=== PATIENT | female | born 1970 | race Two or more races ===

== ENCOUNTER 2024-08-30 12:08 | Emergency (ER) | payer OTHER ==
[~2024-08-30] VITALS: Ht 157.5 cm; Wt 78.2 kg
[2024-08-30 12:08] VITALS: BP 92/61; RESP 20; O2SAT 98
--- NOTE | 2024-08-30 13:18 | ED.PDOC ---
History of Present Illness HPI Comments 54F presents to the Er w/ no prior Hx associated to the c/c of a syncope. Pt reports that she was sent from labor/delivery due from having a syncopal episode. Pt states that she was with her foster child and was holding her hand when the pt felt hot and saw "everything go dark". Pt is now stating that she "f eels a lot better now". PMHx of Thyroid. SHx of Hysterectomy. Family Hx of Cancer. Denies chills, fever, N/V/D, SOB, CP or other associated symptom's, modifiers, or recent injuries or sick contact at this time. Chief Complaint: Syncope Time Seen by MD: 12:55 Primary Care Provider: TARSHA Jasso Notes: Nurses Notes, Medications, Allergies Allergies: Coded Allergies: Carisoprodol (Verified Allergy, Unknown, 08/30/24) Information Source: Patient Mode of Arrival: Wheelchair Severity: Moderate Timing: Minutes Duration: Since onset, Minutes Prehospital treatment: None Associated signs and symptoms No chest pain or shortness for breath. 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 Family History Family History: Reviewed,noncontributory to illness, Family hx of Cancer Social History Smoker: Non-Smoker Alcohol: Denies ETOH Use Drugs: Denies Drug Use Lives In: Home Constitutional: denies: chills, diaphoresis, fatigue, fever, malaise, sweats, weakness, others EENTM: denies: blurred vision, double vision, ear bleeding, ear discharge, ear drainage, ear pain, ear ringing, eye pain, eye redness, hearing loss, mouth pain, mouth swelling, nasal discharge, nose bleeding, nose congestion, nose pain, photophobia, tearing, throat pain, throat swelling, voice changes, others Respiratory: denies: cough, hemoptysis, orthopnea, SOB at rest, shortness of breath, SOB with excertion, stridor, wheezing, others Cardiovascular: reports: syncope; denies: chest pain, dizzy spells, diaphoresis, Dyspnea on exertion, edema, irregular heart beat, left arm pain, lightheadedness, palpitations, PND, others Gastrointestinal: denies: abdomen distended, abdominal pain, blood streaked bowels, constipated, diarrhea, dysphagia, difficulty swallowing, hematemesis, melena, nausea, poor appetite, poor fluid intake, rectal bleeding, rectal pain, vomiting, others Genitourinary: denies: abnormal vagina bleeding, burning, dyspareunia, dysuria, flank pain, frequency, hematuria, incontinence, pain, , vagina discharge, urgency, others Neurological: denies: dizziness, fainting, headache, left sided numbness, left sided weakness, numbness, paresthesia, pre-existing deficit, right sided numbness, right sided weakness, seizure, speech problems, tingling, tremors, weakness, others Musculoskeletal: denies: back pain, gout, joint pain, joint swelling, muscle pain, muscle stiffness, neck pain, others Integumetry: denies: bruises, change in color, change in hair/nails, dryness, laceration, lesions, lumps, rash, wounds, others Allergic/Immunocompromised: denies: Difficulty Healing, Frequent Infections, Hives, Itching, others Hematologic/Lymphatic: denies: anemia, blood clots, easy bleeding, easy bruising, swollen glands, others Endocrine: denies: excessive hunger, excessive sweating, excessive thirst, excessive urination, flushing, intolerance to cold, intolerance to heat, unexplained weight gain, unexplained weight loss, others Psychiatric: denies: anxiety, bipolar disorder, depression, hopeless, panic disorder, schizophrenia, sleepless, suicidal, others All Other Systems: Reviewed and Negative Physical Exam General Appearance: No Apparent Distress HEENT: Normal ENT Inspection, Pharynx Normal, TMs Normal Neck: Full Range of Motion, Non-Tender, Normal, Normal Inspection Respiratory: Chest Non-Tender, Lungs Clear, No Accessory Muscle Use, No Res piratory Distress, Normal Breath Sounds Cardiovascular: No Edema, No JVD, No Murmur, No Gallop, Normal Peripheral Pulses, Regular Rate/Rhythm Breast Exam: Deferred Gastrointestinal: No Organomegaly, Non Tender, No Pulsatile Mass, Normal Bowel Sounds, Soft Genitalia: Deferred Pelvic: Deferred Rectal: Deferred Extremities: No calf tenderness, Normal capillary refill, Normal inspection, Normal range of motion, Non-tender, No pedal edema Musculoskeletal : Apperance: Normal Neurologic: Alert, casing sewer II-XII nml as Tested, No Motor Deficits, Normal Affect, Normal Mood, No Sensory Deficits Cerebellar Function: Normal Reflexes: Normal Skin: Dry, Normal Color, Warm Lymphatic: No Adenopathy Was a procedure done? Was a procedure done?: No EKG EKG : Pulse Rate (adult): 71 [place]: Normal Cardiac Rhythm: NSR Block: None Differential Dx Considerations may include: ACS, IN, generalized weakness X-Ray, Labs, Meds, VS Vital Signs Date Time Temp Pulse Resp B/P (MAP) Pulse Ox O2 Delivery O2 Flow Rate FiO2 08/30/24 12:19 74 08/30/24 12:08 98.0 79 20 82/53 (63) 98 92/61 (71) The patient states that she does want to leave. She states that she feels much better at this time The repeat vital signs were within normal range The patient will follow up with her primary care doctor The patient will return to the emergency department's condition worsens. Time of 1ST Reevaluation: 13:25 Reevaluation 1ST: Unchanged Patient Education/Counseling: Diagnosis, Treatment, Prognosis, Need For Follow Up Family Education/Counseling: No Family Present Departure 1 Departure Time of Disposition: 13:48 Impression: Primary Impression: Episode of syncope Qualified Codes: R55 - Syncope and collapse Additional Impression: Vasovagal attack Disposition: 01 HOME / SELF CARE / HOMELESS Condition: Fair Discharged With: Self Critical Care Note Critical Care Time?: No Stability Stability form required: No Heart Score Heart Score: Heart Score Response (Comments) Value History N/A 0 EKG N/A 0 Age N/A 0 Risk Factors N/A 0 Troponin N/A 0 Total 0 I personally scribed for ISABEL MITTAL MD ([email or web address]) on 08/30/24 at 13:18. Electronically submitted by Pedro Young ([email or web address]). ISABEL MITTAL MD Aug 30, 2024 13:18
[2024-08-30 13:49] VITALS: PULSE 71
--- NOTE | 2024-09-02 09:58 | ECG ---
[facility] Test Date: 2024-08-30 Test Time: 12:19:47 Pat Name: AUGUST GUTIERREZ Department: ER Room: Gender: F [employer] Credit Collector: SAMI : 1970 Requested By: ISABEL MITTAL Order Number: [id number] Reading MD: Measurements Intervals [place] Rate: 74 P: 28 MT: 167 QRS: 21 QRSD: 86 T: 26 QT: 398 QTc: 442 Interpretive Statements Sinus rhythm Probable left atrial enlargement Low voltage, precordial leads Probable anteroseptal infarct, old Please click the below link to view image of tracing.
== END 2024-08-30 14:23 | disposition home or self-care (01) ==
LOC: ER 12:08
DX: R55 Syncope and collapse (principal); E03.9 Hypothyroidism, unspecified; Z90.710 Acquired absence of both cervix and uterus; Z88.5 Allergy status to narcotic agent
CPT/HCPCS: 93005